=== PATIENT | male | born 1955 | race Caucasian/White ===

== ENCOUNTER 2017-09-21 18:39 | Inpatient (IN) | payer BC, OTHER ==
[~2017-09-21] VITALS: Ht 182.9 cm; Wt 110.9 kg
--- NOTE | ~2017-09-21 | EKG ---
[place] [address] [facility] [place] [address] ELECTROCARDIOGRAM REPORT Name: DESTINY KHAN Room #: 424-P ADM IN M.R.#: [id number] Admission: 09/21/17 Attend Phys: Mary Chase Discharge: Date of : 51 Report #: [id number] THIS REPORT FOR: //name// [facility] ED Test Date: 2017-09-21 Test Time: 18:38:59 Pat Name: DESTINY KHAN Department: Room: Gender: M [employer]: KASANDRA : 1955 Requested By: Aniceto Woods Order Number: [id number] MD: Alex Chang Measurements Intervals [place] Rate: 66 P: 50 WY: 161 QRS: 25 QRSD: 97 T: 44 QT: 409 QTc: 429 Interpretive Statements Sinus rhythm No significant abnormality No previous ECG available for comparison Electronically Signed On 09-22-2017 8:12:35 CDT by Alex Chang [email or web address] <ELECTRONICALLY SIGNED> By: Alex Chang MD, [facility] 09/22/17 0812 1838 1838 Alex Chang MD, FACC /EPI
[2017-09-21 18:39] VITALS: BP 105/70
[2017-09-21] MEDS ORDERED: RITALIN5 MG PO (18:44)
[2017-09-21 19:31] LABS: ABSOLUTE NEUTROPHILS 10.5 thou/uL (1.4-8.2); BASOPHILS 0.2 % (0.0-2.0); EOSINOPHILS 0.2 % (0.0-3.0); HEMATOCRIT 50.5 % (42.0-52.0); HEMOGLOBIN 17.2 gm/dL (14.0-18.0); MCH 30.1 pg (26.0-34.0); MCHC 34.1 g/dL (28.0-37.0); MCV 88.2 fL (80.0-100.0); MONOCYTES 3.2 % (1.0-8.0); PLATELET COUNT 194 thou/uL (150-400); POLYS 89.4 % (36.0-66.0); RBC 5.72 mil/uL (4.50-6.00); RDW 13.5 % (10.5-14.5); WBC 11.7 thou/uL (4.0-11.0)
[2017-09-21 19:38] LABS: ANION GAP 9 mmol/L (7-16); BUN 27 mg/dL (7-18); CALCIUM 10.3 mg/dL (8.5-10.1); CHLORIDE 100 mmol/L (98-107); CO2 28 mmol/L (21-32); CREATININE 1.6 mg/dL (0.7-1.3); GLUCOSE 159 mg/dL (74-106); POTASSIUM 4.2 mmol/L (3.5-5.1); SODIUM 137 mmol/L (136-145)
[2017-09-21 19:44] LABS: MAGNESIUM 2.5 mg/dL (1.8-2.4)
[2017-09-21 19:51] LABS: LIPASE 133 U/L (73-393); SGOT 33 U/L (15-37); TOTAL BILIRUBIN 0.8 mg/dL (<0.1-1.0)
[2017-09-21 19:52] LABS: ALBUMIN 4.7 g/dL (3.4-5.0); TROPONIN-I <0.06 ng/mL (<0.06)
[2017-09-21 20:59] LABS: SGPT 42 U/L (30-65)
[2017-09-21 21:44] VITALS: BP 134/85
[2017-09-22 04:33] VITALS: BP 126/71
[2017-09-22 06:09] LABS: ABSOLUTE NEUTROPHILS 9.1 thou/uL (1.4-8.2); BASOPHILS 0.2 % (0.0-2.0); EOSINOPHILS 0.1 % (0.0-3.0); HEMATOCRIT 41.8 % (42.0-52.0); LYMPHOCYTES 7.4 % (24.0-44.0); MCH 30.3 pg (26.0-34.0); MCHC 34.5 g/dL (28.0-37.0); MCV 87.7 fL (80.0-100.0); MONOCYTES 6.1 % (1.0-8.0); PLATELET COUNT 183 thou/uL (150-400); POLYS 86.2 % (36.0-66.0); RBC 4.77 mil/uL (4.50-6.00); RDW 13.3 % (10.5-14.5); WBC 10.5 thou/uL (4.0-11.0)
[2017-09-22 06:13] LABS: HEMOGLOBIN 14.4 gm/dL (14.0-18.0)
[2017-09-22 06:18] LABS: CALCIUM 8.5 mg/dL (8.5-10.1); CREATININE 1.2 mg/dL (0.7-1.3); POTASSIUM 4.3 mmol/L (3.5-5.1)
[2017-09-22 14:02] VITALS: BP 99/66
[2017-09-22 20:42] VITALS: BP 108/69
[2017-09-23 04:15] VITALS: BP 104/70
[2017-09-23 04:28] LABS: ABSOLUTE NEUTROPHILS 4.3 thou/uL (1.4-8.2); BASOPHILS 0.8 % (0.0-2.0); EOSINOPHILS 3.3 % (0.0-3.0); HEMATOCRIT 39.9 % (42.0-52.0); HEMOGLOBIN 13.7 gm/dL (14.0-18.0); LYMPHOCYTES 24.2 % (24.0-44.0); MCH 30.3 pg (26.0-34.0); MCHC 34.3 g/dL (28.0-37.0); MCV 88.4 fL (80.0-100.0); MONOCYTES 7.8 % (1.0-8.0); PLATELET COUNT 158 thou/uL (150-400); POLYS 63.9 % (36.0-66.0); RBC 4.51 mil/uL (4.50-6.00); RDW 13.5 % (10.5-14.5); WBC 6.7 thou/uL (4.0-11.0)
[2017-09-23 04:41] LABS: CALCIUM 8.5 mg/dL (8.5-10.1); CREATININE 1.2 mg/dL (0.7-1.3)
[2017-09-23 07:21] VITALS: BP 107/72
[2017-09-23 14:39] LABS: URINE BILIRUBIN NEGATIVE (Negative); URINE BLOOD NEGATIVE (Negative); URINE CLARITY CLEAR; URINE COLOR YELLOW; URINE GLUCOSE-RANDOM* NEGATIVE (Negative); URINE KETONES TRACE (Negative); URINE LEUKOCYTES-REFLEX NEGATIVE (Negative); URINE NITRITE-REFLEX NEGATIVE (Negative); URINE PROTEIN (DIPSTICK) NEGATIVE (Negative); URINE SPECIFIC GRAVITY 1.015 (1.005-1.035)
[2017-09-23 20:54] VITALS: BP 99/59
[2017-09-24 07:38] LABS: ABSOLUTE NEUTROPHILS 3.5 thou/uL (1.4-8.2); BASOPHILS 0.6 % (0.0-2.0); EOSINOPHILS 3.6 % (0.0-3.0); HEMATOCRIT 39.9 % (42.0-52.0); HEMOGLOBIN 13.6 gm/dL (14.0-18.0); LYMPHOCYTES 24.3 % (24.0-44.0); MCHC 34.2 g/dL (28.0-37.0); MCV 87.5 fL (80.0-100.0); MONOCYTES 7.7 % (1.0-8.0); PLATELET COUNT 161 thou/uL (150-400); POLYS 63.8 % (36.0-66.0); RBC 4.56 mil/uL (4.50-6.00); RDW 13.4 % (10.5-14.5); WBC 5.4 thou/uL (4.0-11.0)
[2017-09-24 07:41] LABS: CREATININE 1.2 mg/dL (0.7-1.3)
[2017-09-24 08:17] VITALS: BP 105/64
[2017-09-24 10:45] VITALS: BP 105/64
== END 2017-09-24 11:39 | disposition home or self-care (01) | DRG 394 ==
LOC: ER 18:39 → 4E 20:55 → EROBS 20:55 → 4E 22:29 → SICU 09-23 15:30
PROVIDERS: Physician Assistant; Surgery
DX: K43.0 Incisional hernia with obstruction, without gangrene (principal); K56.50 Intestinal adhesions [bands], unspecified as to partial versus complete obstruction; N17.9 Acute kidney failure, unspecified; K43.6 Other and unspecified ventral hernia with obstruction, without gangrene; E86.0 Dehydration; F90.9 Attention-deficit hyperactivity disorder, unspecified type; Z90.49 Acquired absence of other specified parts of digestive tract; Z79.899 Other long term (current) drug therapy
CPT/HCPCS: 10183; 15001